=== PATIENT | male | born 1985 | race Caucasian/White ===

== ENCOUNTER 2019-02-03 22:02 | Observation (INO) | payer OTHER ==
[2019-02-03] MEDS ORDERED: Sodium Chloride 0.9% 1,000 ML IV STA (22:45)
[2019-02-03 23:14] LABS: BASO # 0.02 K/mm3 (0.0-2.0); BASO % 0.1 % (0.0-3.0); EOS # 0.1 (0.0-0.7); EOS % 0.8 % (1.5-5.0); HEMOGLOBIN 15.7 g/dL (14.0-18.0); LYMPH # 1.3 (1.2-3.4); LYMPH % 8.9 % (22.0-35.0); MEAN CELL VOLUME 83.5 fl (80.0-105.0); MEAN CORPUSCULAR HGB CONC 34.7 g/dl (31.0-37.0); MEAN PLATELET VOLUME 10.4 fl (7.0-11.0); MONO # 0.9 (0.1-0.6); MONO % 6.5 % (1.0-6.0); RBC 5.41 10^6/uL (3.5-6.1); RED CELL DISTRIBUTION WIDTH 12.6 % (11.5-14.5)
[2019-02-03 23:17] LABS: URINE BILIRUBIN NEGATIVE (NEGATIVE); URINE BLOOD NEGATIVE (NEGATIVE); URINE GLUCOSE (UA) NEGATIVE (NEGATIVE); URINE LEUKOCYTE ESTERASE NEGATIVE Leu/uL (NEGATIVE); URINE PROTEIN NEGATIVE mg/dL (<30 mg/dL); URINE UROBILINOGEN 0.2 E.U./dL (<1 E.U./dL)
[2019-02-03 23:19] LABS: URINE APPEARANCE CLEAR (CLEAR); URINE COLOR YELLOW (YELLOW)
[2019-02-03 23:21] LABS: ALB/GLOB RATIO 1.2 (1.1-1.8); ALBUMIN 4.4 g/dL (3.0-4.8); ALT/SGPT 28 U/L (7-56); AST/SGOT 19 U/L (17-59); BLOOD UREA NITROGEN 7 mg/dL (7-21); CALCIUM 9.3 mg/dL (8.4-10.5); GFR NON-AFRICAN AMERICAN > 60; LIPASE 45 U/L (23-300)
[2019-02-03] MEDS ORDERED: Iohexol 350 MG/100 ML VIAL ONE (23:51)
--- NOTE | 2019-02-04 00:40 | ED PDOC ---
Arrival/HPI - General Chief Complaint: Abdominal Pain Time Seen by Provider: 02/03/19 22:11 Historian: Patient - History of Present Illness Narrative History of Present Illness (Text): 02/04/19 00:25 33-year-old male presents today with left lower quadrant abdominal pain that started suddenly today. Patient describes the pain as a sharp achy pain that is nonradiating. Patient states she has had 2 episodes of vomiting today. He denies testicular pain. He denies back pain. Patient states last week he had diarrhea for about a week but that resolved. Patient states he has been around people who have been sick with similar symptoms. Patient denies fevers or chills. No chest pain or shortness of breath. No urinary symptoms. No other complaints Past Medical History - Provider Review Nursing Documentation Reviewed: Yes - Travel History Have you recently traveled outside [place] w/in the past 3 mons?: No - Infectious Disease Hx of Infectious Diseases: None - Cardiac Hx Cardiac Disorders: No - Psychiatric Hx Substance Use: No - Surgical History Other/Comment: L knee orthoscopic - Anesthesia Hx Anesthesia: No Family/Social History - Physician Review Nursing Documentation Reviewed: Yes Family/Social History: Unknown Family HX Smoking Status: Never Smoked Hx Alcohol Use: No Hx Substance Use: No Allergies/Home Meds Allergies/Adverse Reactions: Allergies No Known Allergies Allergy (Verified 02/03/19 22:16) Home Medications: Home Meds Medication Instructions Recorded Confirmed No Known Home Med 02/03/19 02/03/19 Review of Systems - Review of Systems Constitutional: absent: Fatigue, Fevers Respiratory: absent: SOB, Cough Cardiovascular: absent: Chest Pain, Palpitations Gastrointestinal: Abdominal Pain, Diarrhea, Vomiting. absent: Constipation, Nausea Genitourinary Male: Other (no testicular pain). absent: Dysuria, Frequency, Hematuria, Urinary Output Changes Musculoskeletal: absent: Arthralgias, Back Pain, Neck Pain Skin: absent: Rash, Pruritis Neurological: absent: Headache, Dizziness Psychiatric: absent: Anxiety Physical Exam Vital Signs Reviewed: Yes Vital Signs Temp Pulse Resp BP Pulse Ox 02/03/19 22:17 97.4 F L 73 18 138/84 100 Temperature: Afebrile Blood Pressure: Normal Pulse: Regular Respiratory Rate: Normal Appearance: Positive for: Well-Appearing, Non-Toxic, Comfortable Pain Distress: None Mental Status: Positive for: Alert and Oriented X 3 - Systems Exam Head: Present: Atraumatic Mouth: Present: Moist Mucous Membranes Neck: Present: Normal Range of Motion Respiratory/Chest: Present: Clear to Auscultation, Good Air Exchange. No: Respiratory Distress, Accessory Muscle Use Cardiovascular: Present: Regular Rate and Rhythm, Normal S1, S2. No: Murmurs Abdomen: Present: Tenderness (llq tenderness), Normal Bowel Sounds. No: Distention, Peritoneal Signs, Rebound, Guarding Back: Present: Normal Inspection. No: CVA Tenderness, Midline Tenderness, Paraspinal Tenderness Upper Extremity: Present: Normal ROM Lower Extremity: Present: Normal ROM Neurological: Present: GCS=15, Speech Normal Skin: Present: Warm, Dry, Normal Color. No: Rashes Psychiatric: Present: Alert, Oriented x 3 Medical Decision Making ED Course and Treatment: 02/04/19 00:41 Patient is nontoxic well appearing with stable vital signs presenting with llq abdominal pain CBC:wbc; 14 CMP: wnl Lipase: wnl Urinalysis: wnl CAT scan: FINDINGS: LUNG BASES: The lung bases appear clear. No pleural effusions are seen. LIVER: Unremarkable. GALLBLADDER AND BILE DUCTS: The gallbladder appears within normal limits. No radioopaque gallstones are seen. No biliary ductal dilatation is evident. PANCREAS: Unremarkable. SPLEEN: Unremarkable. ADRENAL GLANDS: Unremarkable. KIDNEYS, URETERS, AND BLADDER: The kidneys appear within normal limits. There is no hydronephrosis or hydro ureter. No urinary calculi are seen. STOMACH AND BOWEL: There is mild constipation in the proximal and mid colon. APPENDIX: There is an abnormal appendix in the right lower quadrant which measures 12 mm in diameter and demonstrate some rim enhancement and is fluid-filled and with some periappendiceal stranding. The finding is compatible with acute appendicitis. No evidence for perforation or abscess. PERITONEUM: No free fluid. No free air. LYMPH NODES: No lymphadenopathy is evident. REPRODUCTIVE: Unremarkable as visualized. VASCULATURE: No evidence of abdominal aortic aneurysm. BONES: Minimal degenerative spine changes. IMPRESSION: 1. There is mild constipation in the proximal and mid colon. 2. There is an abnormal appendix in the right lower quadrant which measures 12 mm in diameter and demonstrate some rim enhancement and is fluid-filled and with some periappendiceal stranding. The finding is compatible with acute appendicitis. No evidence for perforation or abscess. 3. Additional findings as described above. Electronically signed on Feb 04, 2019 12:47:30 AM EDT by: Jaiden Lopez M.D., Certified by ABR, MSK, Neuroradiology Patient reassessment: pt feeling better after toradol. states pain is now intermittent. Discussed all results with patient in depth case discussed with salesperson surgical appliances dr. Live; will admit to medical service. case discussed with dr. monge; blood cultures pending rocephin and flagyl given IV Impression: appendicitis admit med/surg 02/04/19 01:34 Reassessment Condition: Re-examined, Improving,but remains with symptoms - Lab Interpretations Lab Results: Total Bilirubin 0.5 mg/dL (0.2-1.3) 02/03/19 23:04 AST 19 U/L (17-59) 02/03/19 23:04 ALT 28 U/L (7-56) 02/03/19 23:04 Alkaline Phosphatase 66 U/L (38-126) 02/03/19 23:04 Total Protein 8.0 g/dL (5.8-8.3) 02/03/19 23:04 Albumin 4.4 g/dL (3.0-4.8) 02/03/19 23:04 Globulin 3.6 gm/dL 02/03/19 23:04 Albumin/Globulin Ratio 1.2 (1.1-1.8) 02/03/19 23:04 Lipase 45 U/L (23-300) 02/03/19 23:04 Urine Color Yellow (YELLOW) 02/03/19 23:11 Urine Appearance Clear (CLEAR) 02/03/19 23:11 Urine pH 8.0 (4.7-8.0) 02/03/19 23:11 Ur Specific [place] 1.015 (1.005-1.035) 02/03/19 23:11 Urine Protein Negative mg/dL (<30 mg/dL) 02/03/19 23:11 Urine Glucose (UA) Negative mg/dL (NEGATIVE) 02/03/19 23:11 Urine Ketones Negative mg/dL (NEGATIVE) 02/03/19 23:11 Urine Blood Negative (NEGATIVE) 02/03/19 23:11 Urine Nitrate Negative (NEGATIVE) 02/03/19 23:11 Urine Bilirubin Negative (NEGATIVE) 02/03/19 23:11 Urine Urobilinogen 0.2 E.U./dL (<1 E.U./dL) 02/03/19 23:11 Ur Leukocyte Esterase Negative [place]/uL (NEGATIVE) 02/03/19 23:11 - RAD Interpretation Radiology Orders: 02/03/19 22:49 ABD & PELVIS IV CONTRAST ONLY [CT] Stat - Medication Orders Current Medication Orders: Discontinued Medications Sodium Chloride (Sodium Chloride 0.9%) 1,000 mls @ 999 mls/hr IV .Q1H1M STA Stop: 02/03/19 23:45 Last Admin: 02/03/19 22:46 Dose: 999 mls/hr eMAR Start Stop Document 02/03/19 22:46 (Rec: 02/03/19 22:57 [id number] Intravenous Solution Start Date 02/03/19 Start Time 22:46 Ketorolac Tromethamine (Toradol) 30 mg IVP STAT STA Stop: 02/03/19 22:49 Last Admin: 02/03/19 22:57 Dose: 30 mg MAR Pain Assessment Document 02/03/19 22:57 (Rec: 02/03/19 22:58 [id number] Pain Reassessment Is this a pain reassessment? Yes Presence of Pain Presence of Pain Yes Pain Scale Used Protocol: PSCALES Pain Scale Used Numeric Location Left, Right or Bilateral Left Upper or Lower Lower Pain Location Body Site Abdomen Description Description Intermittent Intensity of Pain at present 6 Pain Behavior Rubbing Site Facial Grimacing IVP Administration Document 02/03/19 22:57 (Rec: 02/03/19 22:58 [id number] Charges for Administration # of IVP Administrations 1 Re-Assess: MARIE Pain Assessment Document 02/03/19 23:57 (Rec: 02/04/19 00:08 [id number] Pain Reassessment Is this a pain reassessment? Yes Sleep Is patient sleeping during reassessment? No Presence of Pain Presence of Pain No Disposition/Present on Arrival - Present on Arrival Any Indicators Present on Arrival: No History of DVT/PE: No History of Uncontrolled Diabetes: No Urinary Catheter: No History of Decub. Ulcer: No History Surgical Site Infection Following: None - Disposition Have Diagnosis and Disposition been Completed?: Yes Diagnosis: Appendicitis Disposition: HOSPITALIZED Disposition Time: 00:57 Patient Plan: Admission Patient Problems: Current Active Problems Problem Status Onset Appendicitis Acute Condition: FAIR Forms: [employer] (Uzbek)
[2019-02-04] MEDS ORDERED: metroNIDAZOLE IV 500 mg/100 ml 500 MG/100 ML BAG IVPB STA (00:54)
[2019-02-04] MEDS ORDERED: cefTRIAXone 1 gm 1 GM/100 ML BAG IVPB STA (00:54)
--- NOTE | 2019-02-04 01:15 | CP.PCM.CON ---
History of Present Illness - History of Present Illness History of Present Illness: Surgery Consult Note. Dr. Vela 33yo M with no significant PMHx here for evaluation of abdominal pain. Patient reports that the pain started yesterday morning at 11 AM and has been located in the LLQ, left periumbilical. States that the pain feels sharp. Does report associated nausea and vomiting x2 episodes, non-bilious, non-bloody. Reports regular bowel movements and last episode this morning, no blood. Does report subjective fever. Denies any sick contacts at home. Denies ever having similar symptoms in the past. Reports having diarrhea last week which has since resolved. Denies any chest pain, no shortness of breath. No urinary complaints. PMHx: Denies PSHx: Left Knee surgery 20 years ago Family Hx: denies Social Hx: Denies tobacco use, Denies etoh use, denies illicit drugs Allergy: Shellfish. Review of Systems - Review of Systems All systems: reviewed and no additional remarkable complaints except - Constitutional Constitutional: Chills, Fever - EENT Eyes: absent: Blurred Vision Ears: absent: Decreased Hearing Nose/Mouth/Throat: absent: Nasal Congestion - Cardiovascular Cardiovascular: absent: Chest Pain, Dyspnea - Respiratory Respiratory: absent: Dyspnea - Gastrointestinal Gastrointestinal: Abdominal Pain, Nausea, Vomiting. absent: Hematemesis, Hematochezia - Genitourinary Genitourinary: absent: Change in Urinary Stream, Difficulty Urinating, Dysuria - Musculoskeletal Musculoskeletal: absent: Back Pain - Integumentary Integumentary: absent: Jaundice Past Patient History - Infectious Disease Hx of Infectious Diseases: None - Past Medical History & Family History Past Medical History?: No Past Family History: Reviewed and not pertinent - Past Social History Smoking Status: Never Smoked Alcohol: None Drugs: Denies - CARDIAC Hx Cardiac Disorders: No - PSYCHIATRIC Hx Substance Use: No - SURGICAL HISTORY Other/Comment: L knee orthoscopic - ANESTHESIA Hx Anesthesia: No Meds Allergies/Adverse Reactions: Allergies Allergy/AdvReac Type Severity Reaction Status Date / Time No Known Allergies Allergy Verified 02/03/19 22:16 - Medications Medications: Current Medications Metronidazole (Flagyl) 500 mg in 100 mls @ 100 mls/hr IVPB STAT STA; Protocol Stop: 02/04/19 01:53 Ceftriaxone Sodium (Rocephin 1 Gram Ivpb) 1 gm in 100 mls @ 200 mls/hr IVPB STAT STA; Protocol Stop: 02/04/19 01:23 Last Admin: 02/04/19 01:10 Dose: 200 mls/hr Physical Exam - Constitutional Appears: Well, Non-toxic, No Acute Distress - Head Exam Head Exam: ATRAUMATIC, NORMAL INSPECTION, NORMOCEPHALIC - Eye Exam Eye Exam: EOMI, Normal appearance. absent: Scleral icterus - ENT Exam ENT Exam: Mucous Membranes Moist - Respiratory Exam Respiratory Exam: NORMAL BREATHING PATTERN. absent: Accessory Muscle Use, Respiratory Distress - Cardiovascular Exam Cardiovascular Exam: RRR. absent: JVD - GI/Abdominal Exam GI & Abdominal Exam: Soft. absent: Distended, Firm, Guarding, Rebound, Rigid Additional comments: Mild tenderness to deep palpation in right lower quadrant. No rebound No guarding No peritoneal signs No Psoas sign. No obturator sign - Extremities Exam Extremities exam: Positive for: normal inspection. Negative for: calf tenderness - Back Exam Back exam: NORMAL INSPECTION. absent: CVA tenderness (L), CVA tenderness (R) - Neurological Exam Neurological exam: Alert, Oriented x3 - Psychiatric Exam Psychiatric exam: Normal Affect, Normal Mood - Skin Skin Exam: Dry, Intact, Normal Color, Warm Results - Vital Signs Recent Vital Signs: Last Vital Signs Temp 97.4 F L 02/03/19 22:17 Pulse 70 02/04/19 00:59 Resp 18 02/04/19 00:59 BP 113/66 02/04/19 00:59 Pulse Ox 98 02/04/19 00:59 - Labs Result Diagrams: 02/03/19 23:04 02/03/19 23:04 Labs: Laboratory Results - last 24 hr 02/03/19 02/03/19 02/03/19 23:04 23:04 23:11 WBC 14.0 H RBC 5.41 Hgb 15.7 Hct 45.2 MCV 83.5 MCH 29.0 MCHC 34.7 RDW 12.6 Plt Count 250 MPV 10.4 Neut % (Auto) 83.7 H Lymph % (Auto) 8.9 L [place] % (Auto) 6.5 H Eos % (Auto) 0.8 L Baso % (Auto) 0.1 Lymph # (Auto) 1.3 [place] # (Auto) 0.9 H Eos # (Auto) 0.1 Baso # (Auto) 0.02 Absolute Neuts (auto) 11.75 H Sodium 141 Potassium 3.5 L Chloride 104 Carbon Dioxide 27 Anion Gap 13 BUN 7 Creatinine 0.7 L Est GFR ( Amer) > 60 Est GFR (Non-Af Amer) > 60 Random Glucose 140 H Calcium 9.3 Total Bilirubin 0.5 AST 19 ALT 28 Alkaline Phosphatase 66 Total Protein 8.0 Albumin 4.4 Globulin 3.6 Albumin/Globulin Ratio 1.2 Lipase 45 Urine Color Yellow Urine Appearance Clear Urine pH 8.0 Ur Specific [place] 1.015 Urine Protein Negative Urine Glucose (UA) Negative Urine Ketones Negative Urine Blood Negative Urine Nitrate Negative Urine Bilirubin Negative Urine Urobilinogen 0.2 Ur Leukocyte Esterase Negative Assessment & Plan - Assessment and Plan (Free Text) Assessment: 33yo M with atypical presentation of acute appendicitis - CT Abd/Pelvis noted: Periapendiceal fat stranding, 12mm dilated, fluid filled appendix with thickened wall - Leukocytosis Plan: - NPO except meds - f/u Coags - Will plan for OR - IV Abx - Pain control - Antiemetics as needed - IV Fluids Further recs as per Dr. Dane Live PGY2 surgery
[2019-02-04] MEDS ORDERED: Potassium Chloride 20 mEq ER Tab PO STA (01:31)
[2019-02-04] MEDS ORDERED: Sodium Chloride 0.9% 1,000 ML IV SCH (01:45)
[2019-02-04] MEDS: Morphine 2 mg/ml ISec IVP PRN ×2 (02:03→06:12)
--- NOTE | 2019-02-04 02:03 | CP.PCM.HP ---
<Armaan Whitney - Last Filed: 02/04/19 02:16> History of Present Illness - History of Present Illness History of Present Illness: Armaan Whitney DO, PGY-1 Hospitalist Admission History and Physical for Dr. Fleming CC: LLQ abdominal pain HPI: Patient is a 33 year old male with no significant PMH who presented to ED earlier this afternoon with a complaint of worsening LLQ abdominal pain. He described the pain as a burning type sensation that radiates to his mid- abdominal region. He also admits to two episodes of vomiting earlier in the day. He admits to subjective fever earlier in the day. He states he decided to come in because the pain was worsening. He otherwise denies chills, CP, SOB, bloody/black stools, diarrhea, ALLISON, changes in vision, or urinary complaints. 12 point ROS was otherwise negative except as specified above. PMD: none Past Medical History: denies Past Surgical History: denies Allergies: NKA Home medications: no home medications Family History: reviewed, non-contributory Social History: denies current or prior tobacco, EtOH, illicit drug use Present on Admission - Present on Admission Any Indicators Present on Admission: No History of DVT/PE: No History of Uncontrolled Diabetes: No Urinary Catheter: No Decubitus Ulcer Present: No Past Patient History - Infectious Disease Hx of Infectious Diseases: None - Past Medical History & Family History Past Medical History?: No Past Family History: Reviewed and not pertinent - Past Social History Smoking Status: Never Smoked Alcohol: None Drugs: Denies - CARDIAC Hx Cardiac Disorders: No - PSYCHIATRIC Hx Substance Use: No - SURGICAL HISTORY Other/Comment: L knee orthoscopic - ANESTHESIA Hx Anesthesia: No Meds Allergies/Adverse Reactions: Allergies Allergy/AdvReac Type Severity Reaction Status Date / Time shellfish derived Allergy RASH Verified 02/04/19 02:10 Physical Exam - Constitutional Appears: Non-toxic, No Acute Distress - Head Exam Head Exam: ATRAUMATIC, NORMOCEPHALIC - Eye Exam Eye Exam: EOMI, PERRL - ENT Exam ENT Exam: Mucous Membranes Moist - Neck Exam Neck exam: Positive for: Full Rom, Normal Inspection - Respiratory Exam Respiratory Exam: Clear to Auscultation Bilateral, NORMAL BREATHING PATTERN. absent: Accessory Muscle Use, Rales, Rhonchi, Wheezes, Respiratory Distress - Cardiovascular Exam Cardiovascular Exam: REGULAR RHYTHM, RRR, +S1, +S2. absent: Diastolic murmur, Gallop, Rubs, Systolic Murmur - GI/Abdominal Exam GI & Abdominal Exam: Normal Bowel Sounds, Tenderness (mild tenderness to deep palpation RLQ). absent: Guarding, Rebound Additional comments: No peritoneal signs, no rebound, no guarding - Extremities Exam Extremities exam: Positive for: full ROM, normal inspection. Negative for: pedal edema - Back Exam Back exam: NORMAL INSPECTION - Neurological Exam Neurological exam: Alert, Oriented x3 - Psychiatric Exam Psychiatric exam: Normal Affect, Normal Mood - Skin Skin Exam: Dry, Intact, Warm Results - Vital Signs Recent Vital Signs: Last Vital Signs Temp 97.4 F L 02/03/19 22:17 Pulse 70 02/04/19 00:59 Resp 18 02/04/19 00:59 BP 113/66 02/04/19 00:59 Pulse Ox 98 02/04/19 00:59 - Labs Result Diagrams: 02/03/19 23:04 02/03/19 23:04 Labs: Laboratory Results - last 24 hr 02/03/19 02/03/19 02/03/19 23:04 23:04 23:11 WBC 14.0 H RBC 5.41 Hgb 15.7 Hct 45.2 MCV 83.5 MCH 29.0 MCHC 34.7 RDW 12.6 Plt Count 250 MPV 10.4 Neut % (Auto) 83.7 H Lymph % (Auto) 8.9 L [place] % (Auto) 6.5 H Eos % (Auto) 0.8 L Baso % (Auto) 0.1 Lymph # (Auto) 1.3 [place] # (Auto) 0.9 H Eos # (Auto) 0.1 Baso # (Auto) 0.02 Absolute Neuts (auto) 11.75 H Sodium 141 Potassium 3.5 L Chloride 104 Carbon Dioxide 27 Anion Gap 13 BUN 7 Creatinine 0.7 L Est GFR ( Amer) > 60 Est GFR (Non-Af Amer) > 60 Random Glucose 140 H Calcium 9.3 Total Bilirubin 0.5 AST 19 ALT 28 Alkaline Phosphatase 66 Total Protein 8.0 Albumin 4.4 Globulin 3.6 Albumin/Globulin Ratio 1.2 Lipase 45 Urine Color Yellow Urine Appearance Clear Urine pH 8.[address] [place] 1.015 Urine Protein Negative Urine Glucose (UA) Negative Urine Ketones Negative Urine Blood Negative Urine Nitrate Negative Urine Bilirubin Negative Urine Urobilinogen 0.2 Ur Leukocyte Esterase Negative Assessment & Plan - Assessment and Plan (Free Text) Assessment: 33 yo M with no significant PMH admitted for acute appendicitis. Plan: Acute appendicitis Atypical presentation but identified on CTAP Subjective fever, leukocytosis noted Patient started on rocephin/flagyl, will continue Zofran PRN Per surgery, patient likely to go to OR in AM Surgery consulted, all recs appreciated DVT/GI PPX: SCD/GI ppx not indicated Full Code NPO pending surgery Monitor on med/surg Patient seen, examined with, and plan discussed with my attending Dr. Lonnie Whitney, ArnulfoO. IM Resident PGY-1 <Rochelle Fleming - Last Filed: 02/04/19 03:00> Results - Vital Signs Recent Vital Signs: Last Vital Signs Temp 97.4 F L 02/03/19 22:17 Pulse 60 02/04/19 02:08 Resp 18 02/04/19 02:08 BP 120/62 02/04/19 02:08 Pulse Ox 97 02/04/19 02:08 - Labs Result Diagrams: 02/03/19 23:04 02/03/19 23:04 Labs: Laboratory Results - last 24 hr 02/03/19 02/03/19 02/03/19 23:04 23:04 23:11 WBC 14.0 H RBC 5.41 Hgb 15.7 Hct 45.2 MCV 83.5 MCH 29.0 MCHC 34.7 RDW 12.6 Plt Count 250 MPV 10.4 Neut % (Auto) 83.7 H Lymph % (Auto) 8.9 L [place] % (Auto) 6.5 H Eos % (Auto) 0.8 L Baso % (Auto) 0.1 Lymph # (Auto) 1.3 [place] # (Auto) 0.9 H Eos # (Auto) 0.1 Baso # (Auto) 0.02 Absolute Neuts (auto) 11.75 H PT INR APTT Sodium 141 Potassium 3.5 L Chloride 104 Carbon Dioxide 27 Anion Gap 13 BUN 7 Creatinine 0.7 L Est GFR ( Amer) > 60 Est GFR (Non-Af Amer) > 60 Random Glucose 140 H Calcium 9.3 Total Bilirubin 0.5 AST 19 ALT 28 Alkaline Phosphatase 66 Total Protein 8.0 Albumin 4.4 Globulin 3.6 Albumin/Globulin Ratio 1.2 Lipase 45 Urine Color Yellow Urine Appearance Clear Urine pH 8.[address] [place] 1.015 Urine Protein Negative Urine Glucose (UA) Negative Urine Ketones Negative Urine Blood Negative Urine Nitrate Negative Urine Bilirubin Negative Urine Urobilinogen 0.2 Ur Leukocyte Esterase Negative 02/04/19 01:05 WBC RBC Hgb Hct MCV MCH MCHC RDW Plt Count MPV Neut % (Auto) Lymph % (Auto) [place] % (Auto) Eos % (Auto) Baso % (Auto) Lymph # (Auto) [place] # (Auto) Eos # (Auto) Baso # (Auto) Absolute Neuts (auto) PT 13.1 H INR 1.18 APTT 37.9 Sodium Potassium Chloride Carbon Dioxide Anion Gap BUN Creatinine Est GFR ( Amer) Est GFR (Non-Af Amer) Random Glucose Calcium Total Bilirubin AST ALT Alkaline Phosphatase Total Protein Albumin Globulin Albumin/Globulin Ratio Lipase Urine Color Urine Appearance Urine pH Ur Specific [place] Urine Protein Urine Glucose (UA) Urine Ketones Urine Blood Urine Nitrate Urine Bilirubin Urine Urobilinogen Ur Leukocyte Esterase Attending/Attestation - Attestation I have personally seen and examined this patient.: Yes I have fully participated in the care of the patient.: Yes I have reviewed all pertinent clinical information: Yes Notes (Text): 02/04/19 02:44 Note: examination of the abd reveals tenderness on palpation of the LLQ.There is no guarding or rebound Pt seen with the resident by the bedside. Case discussed in detail. Agree with rest of documentation,assessment and plan of treatment.
[2019-02-04 02:12] LABS: INR 1.18; PARTIAL THROMBOPLASTIN TIME 37.9 Seconds (26.9-38.3); PROTHROMBIN TIME 13.1 SECONDS (9.4-12.5)
[2019-02-04 03:12] VITALS: BMI 29.1
[2019-02-04] MEDS: metroNIDAZOLE IV 500 mg/100 ml 500 MG/100 ML BAG IVPB SCH ×3 (06:08→21:42)
[2019-02-04 07:38] LABS: BASO # 0.02 K/mm3 (0.0-2.0); BASO % 0.2 % (0.0-3.0); EOS # 0.1 (0.0-0.7); EOS % 0.8 % (1.5-5.0); HEMOGLOBIN 14.5 g/dL (14.0-18.0); LYMPH % 7.8 % (22.0-35.0); MEAN CELL VOLUME 84.2 fl (80.0-105.0); MEAN CORPUSCULAR HEMOGLOBIN 28.3 pg (25.0-35.0); MEAN CORPUSCULAR HGB CONC 33.6 g/dl (31.0-37.0); MEAN PLATELET VOLUME 9.9 fl (7.0-11.0); MONO % 8.3 % (1.0-6.0); RBC 5.12 10^6/uL (3.5-6.1); RED CELL DISTRIBUTION WIDTH 12.7 % (11.5-14.5); WHITE BLOOD COUNT 12.5 10^3/uL (4.5-11.0)
[2019-02-04 08:17] LABS: ALB/GLOB RATIO 1.2 (1.1-1.8); ALBUMIN 3.9 g/dL (3.0-4.8); ALT/SGPT 23 U/L (7-56); AST/SGOT 25 U/L (17-59); BLOOD UREA NITROGEN 7 mg/dL (7-21); CALCIUM 8.6 mg/dL (8.4-10.5); GFR NON-AFRICAN AMERICAN > 60
[2019-02-04] MEDS: cefTRIAXone 1 gm 1 GM/100 ML BAG IVPB SCH (10:04)
--- NOTE | 2019-02-04 10:25 | CT ---
Date of service: 02/03/2019 PROCEDURE: CT scan of the abdomen and pelvis HISTORY: Left lower quadrant abdominal pain. COMPARISON: None. TECHNIQUE: Contiguous axial images of the abdomen and pelvis performed in standard fashion following intravenous injection of approximately 100 cc Omnipaque 350 contrast material. Additional 2D sagittal and coronal reformats generated. Radiation dose: Total exam DLP = 562.25 mGy-cm. This CT exam was performed using one or more of the following dose reduction techniques: Automated exposure control, adjustment of the mA and/or kV according to patient size, and/or use of iterative reconstruction technique. FINDINGS: LOWER THORAX: Heart size within range of normal. No significant pericardial effusion. Small hiatal hernia. Minor passive/dependent type atelectasis both posterior sulci. Lung bases otherwise clear. No effusion or basilar pneumothorax. LIVER: Liver is mildly enlarged measuring nearly 22 cm in CC dimension. Minor diffuse fatty hepatic infiltration. Portal and splenic veins are opacified GALLBLADDER AND BILE DUCTS: Gallbladder physiologically distended with no evidence of intraluminal calculi. PANCREAS: Unremarkable. No mass. No ductal dilatation. SPLEEN: Spleen is mildly enlarged measuring nearly 14 cm in CC dimension. No obvious splenic mass collection or calcification ADRENALS: The slightly nodular appearing left adrenal gland KIDNEYS AND URETERS: Kidneys demonstrate relatively symmetric nephrograms. No evidence of nephrolithiasis or hydronephrosis. No obvious renal masses or collections. BLADDER: Urinary bladder incompletely distended which in part accounts for thick-walled appearance however muscular hypertrophy presumably contributes. Correlation with urinalysis recommended to exclude cystitis. REPRODUCTIVE: Prostate gland measures approximately 4.0 cm in transverse dimension. APPENDIX: The appendix is dilated measuring up to approximately 14 mm in greatest diameter mild enhancing thickened wall. There is also mild infiltration and questionable small amount of fluid within the adjacent mesentery. Findings are consistent with acute appendicitis. BOWEL: Evaluation of bowel is somewhat lately limited due to the lack of oral contrast material. Stomach is incompletely distended with thick-walled appearance. Visualized loops of small bowel exhibit contour and caliber. No evidence of mechanical small bowel obstruction. Moderate amount of stool seen throughout the large bowel consistent retention/constipation. PERITONEUM: Unremarkable. No fluid collection. No free air. LYMPH NODES: There are a few small to medium-sized nonspecific retroperitoneal lymph nodes. VASCULATURE: Unremarkable. No aortic aneurysm. No aortic atherosclerotic calcification or mural plaque present. BONES: No acute compression fractures no retropulsed fragments. Minor chronic anterior stature loss of the T11, T12 and L1 segments likely degenerative in origin. [id number] mild multilevel degenerative spondylosis of the lower thoracic and lumbar spine OTHER FINDINGS: None. IMPRESSION: Findings consistent with acute appendicitis. Mild constipation. Hepatomegaly. Mild splenomegaly. Preliminary report provided by overnight radiology service.
[2019-02-04] MEDS ORDERED: Bupivacaine 0.5% 50 ML IJ ONE (11:41)
--- NOTE | 2019-02-04 11:42 | RAD ---
Date of service: 02/04/2019 HISTORY: pre-op COMPARISON: No prior. FINDINGS: LUNGS: No active pulmonary disease. PLEURA: No significant pleural effusion identified, no pneumothorax apparent. CARDIOVASCULAR: No atherosclerotic calcification present Normal. OSSEOUS STRUCTURES: No significant abnormalities. VISUALIZED UPPER ABDOMEN: Normal. OTHER FINDINGS: None. IMPRESSION: No active disease.
[2019-02-04] MEDS ORDERED: Midazolam 2 MG/2 ML VIAL ONE (12:31)
[2019-02-04] MEDS ORDERED: Propofol 10 mg/ml Inj (20 ML) ONE (12:31)
[2019-02-04] MEDS ORDERED: Succinylcholine 200 mg/10 ml Inj IV ONE (12:31)
[2019-02-04] MEDS ORDERED: Lactated Ringer's 1,000 ML IV SCH ×2 (13:00→15:30)
[2019-02-04] MEDS ORDERED: Rocuronium 10 mg/ml (5 ml) ONE (13:32)
[2019-02-04] MEDS ORDERED: MetroNIDAZOLE 500 mg/100 ml IVPB ONE (13:55)
[2019-02-04] MEDS ORDERED: metroNIDAZOLE IV 500 mg/100 ml 500 MG/100 ML BAG ONE (13:57)
[2019-02-04] MEDS ORDERED: Bupivacaine 0.5% Inj(30mL) IJ ONE ×2 (14:00→15:10)
[2019-02-04] MEDS ORDERED: Desflurane Inhalation Anesthetic Liq (240 ml) ONE (14:21)
[2019-02-04] MEDS ORDERED: Neostigmine Methylsulfate 3mg/3ml Syringe IV ONE (14:25)
[2019-02-04] MEDS ORDERED: Morphine 4 mg/ml ISec IVP PRN (15:23)
[2019-02-04] MEDS ORDERED: Oxycodone/Acetaminophen 5/325 mg Tab PO PRN (15:23)
--- NOTE | 2019-02-04 15:26 | PCM.SURG1 ---
Surgeon's Initial Post Op Note - Surgeon's Notes Surgeon: Dr. Vela Retort Or Condenser Press Operator: Dr. Tuttle PGY3, Dr. Green PGY1 Type of Anesthesia: General Endo Pre-Operative Diagnosis: acute appendicitis Operative Findings: acute appendicitis Post-Operative Diagnosis: acute appendicitis Operation Performed: laparoscopic appendectomy Specimen/Specimens Removed: appendix Estimated Blood Loss: EBL {In ML}: 30 Blood Products Given: N/A Drains Used: No Drains Post-Op Condition: Good Date of Surgery/Procedure: 02/04/19 Time of Surgery/Procedure: 15:26
[2019-02-04] MEDS ORDERED: HYDROmorphone 1 mg/ml ISec IVP PRN (15:28)
--- NOTE | 2019-02-04 16:46 | CARD ---
APPROVED REPORT Date of service: 02/04/2019 EKG Measurement Heart [id number] <Conclusion> Normal sinus rhythm Normal ECG
[2019-02-05] MEDS: metroNIDAZOLE IV 500 mg/100 ml 500 MG/100 ML BAG IVPB SCH (06:10)
[2019-02-05 07:37] LABS: BASO # 0.01 K/mm3 (0.0-2.0); BASO % 0.1 % (0.0-3.0); EOS % 0.1 % (1.5-5.0); HEMOGLOBIN 13.9 g/dL (14.0-18.0); LYMPH # 1.3 (1.2-3.4); LYMPH % 10.5 % (22.0-35.0); MEAN CELL VOLUME 83.8 fl (80.0-105.0); MEAN CORPUSCULAR HEMOGLOBIN 28.5 pg (25.0-35.0); MEAN PLATELET VOLUME 10.1 fl (7.0-11.0); MONO # 0.9 (0.1-0.6); MONO % 7.2 % (1.0-6.0); RBC 4.88 10^6/uL (3.5-6.1); RED CELL DISTRIBUTION WIDTH 12.7 % (11.5-14.5); WHITE BLOOD COUNT 12.6 10^3/uL (4.5-11.0)
[2019-02-05 07:50] VITALS: BP 102/61; PULSE 61; RESP 20; TEMP 98.3; O2SAT 98
[2019-02-05 07:52] LABS: ALB/GLOB RATIO 1.1 (1.1-1.8); ALBUMIN 3.6 g/dL (3.0-4.8); ALT/SGPT 22 U/L (7-56); AST/SGOT 38 U/L (17-59); BLOOD UREA NITROGEN 10 mg/dL (7-21); CALCIUM 8.7 mg/dL (8.4-10.5); GFR NON-AFRICAN AMERICAN > 60
[2019-02-05] MEDS: cefTRIAXone 1 gm 1 GM/100 ML BAG IVPB SCH (09:49)
--- NOTE | 2019-02-05 11:48 | CP.PCM.PN ---
Subjective - Date & Time of Evaluation Date of Evaluation: 02/05/19 Time of Evaluation: 11:45 - Subjective Subjective: Jorje Gupta PGY1 Progress Note for Dr. Vela Pt was examined at bedside this morning. He reports feeling well, with mild abdo jolie pain and dysuria. He reports tolerating diet. He denies any nausea, vomiting, fever or chills. He passed gas but denies any bowel movements as of yet. Objective - Vital Signs/Intake and Output Vital Signs (last 24 hours): Temp Pulse Resp BP Pulse Ox 98.3 F 61 20 102/61 98 02/05/19 06:00 02/05/19 06:00 02/05/19 06:00 02/05/19 06:00 02/05/19 06:00 - Medications Medications: Current Medications Metronidazole (Flagyl) 500 mg in 100 mls @ 100 mls/hr IVPB Q8 ALISON; Protocol Last Admin: 02/05/19 06:10 Dose: 100 mls/hr Ceftriaxone Sodium (Rocephin 1 Gram Ivpb) 1 gm in 100 mls @ 100 mls/hr IVPB DAILY ALISON; Protocol Last Admin: 02/05/19 09:49 Dose: 100 mls/hr Sodium Chloride (Sodium Chloride 0.9%) 1,000 mls @ 100 mls/hr IV .Q10H ALISON Last Admin: 02/04/19 02:04 Dose: 100 mls/hr Morphine Sulfate (Morphine) 4 mg IVP Q4H PRN PRN Reason: Pain, severe (8-10) Ondansetron HCl (Zofran Inj) 4 mg IVP Q6H PRN PRN Reason: Nausea/Vomiting Last Admin: 02/04/19 02:04 Dose: 4 mg Oxycodone/Acetaminophen (Percocet 5/325 Mg Tab) 2 tab PO Q4H PRN PRN Reason: Pain, moderate (4-7) Stop: 02/07/19 15:24 - Labs Labs: 02/05/19 07:15 02/05/19 07:15 PT 13.1 SECONDS (9.4-12.5) H 02/04/19 01:05 INR 1.18 02/04/19 01:05 APTT 37.9 Seconds (26.9-38.3) 02/04/19 01:05 - Constitutional Appears: Well, No Acute Distress - Head Exam Head Exam: ATRAUMATIC, NORMOCEPHALIC - Eye Exam Eye Exam: EOMI, PERRL - ENT Exam ENT Exam: Normal Exam - Neck Exam Neck Exam: Normal Inspection - Respiratory Exam Respiratory Exam: Clear to Ausculation Bilateral, NORMAL BREATHING PATTERN. absent: Rales, Rhonchi, Wheezes - Cardiovascular Exam Cardiovascular Exam: REGULAR RHYTHM, +S1, +S2. absent: Gallop, Rubs, Murmur - GI/Abdominal Exam GI & Abdominal Exam: Soft, Normal Bowel Sounds. absent: Distended, Tenderness Additional comments: surgical sites clean/dry/intact - Extremities Exam Extremities Exam: Normal Inspection. absent: Pedal Edema Assessment and Plan - Assessment and Plan (Free Text) Assessment: 33 yo M with no significant PMH admitted for acute appendicitis. S/p lap appy POD 1 Plan: - Regular Diet - afebrile, no leukocytosis - asymptomatic - follow up in office next week - avoid heavy lifting for 4-6 weeks - no antibiotics necessary - stable for d/c Case reviewed with Dr. Vela
--- NOTE | 2019-02-05 12:43 | CP.PCM.DIS ---
<Bro Suarez - Last Filed: 02/05/19 13:13> Provider - Provider Date of Admission: 02/04/19 00:56 Attending physician: Daya Sequeira MD Primary care physician: None Consults: 02/04/19 01:20 General Surgery Consult Stat Comment: Consulting Provider: Kunal Vela Consulting Physician: Kunal Vela Reason for Consult: appendicitis Time Spent in preparation of Discharge (in minutes): 35 Hospital Course - Lab Results Lab Results: Micro Results 02/04/19 01:05 Blood Blood Culture - Preliminary NO GROWTH AFTER 24 HOURS 02/04/19 00:58 Blood Blood Culture - Preliminary NO GROWTH AFTER 24 HOURS Most Recent Lab Values WBC 12.6 10^3/uL (4.5-11.0) H 02/05/19 07:15 RBC 4.88 10^6/uL (3.5-6.1) 02/05/19 07:15 Hgb 13.9 g/dL (14.0-18.0) L 02/05/19 07:15 Hct 40.9 % (42.0-52.0) L 02/05/19 07:15 MCV 83.8 fl (80.0-105.0) 02/05/19 07:15 MCH 28.5 pg (25.0-35.0) 02/05/19 07:15 MCHC 34.0 g/dl (31.0-37.0) 02/05/19 07:15 RDW 12.7 % (11.5-14.5) 02/05/19 07:15 Plt Count 227 10^3/uL (120.0-450.0) 02/05/19 07:15 MPV 10.1 fl (7.0-11.0) 02/05/19 07:15 Neut % (Auto) 82.1 % (50.0-68.0) H 02/05/19 07:15 Lymph % (Auto) 10.5 % (22.0-35.0) L 02/05/19 07:15 [place] % (Auto) 7.2 % (1.0-6.0) H 02/05/19 07:15 Eos % (Auto) 0.1 % (1.5-5.0) L 02/05/19 07:15 Baso % (Auto) 0.1 % (0.0-3.0) 02/05/19 07:15 Lymph # (Auto) 1.3 (1.2-3.4) 02/05/19 07:15 [place] # (Auto) 0.9 (0.1-0.6) H 02/05/19 07:15 Eos # (Auto) 0.0 (0.0-0.7) 02/05/19 07:15 Baso # (Auto) 0.01 K/mm3 (0.0-2.0) 02/05/19 07:15 Absolute Neuts (auto) 10.36 (1.4-6.5) H 02/05/19 07:15 PT 13.1 SECONDS (9.4-12.5) H 02/04/19 01:05 INR 1.18 02/04/19 01:05 APTT 37.9 Seconds (26.9-38.3) 02/04/19 01:05 Sodium 141 mmol/L (132-148) 02/05/19 07:15 Potassium 4.0 mmol/L (3.6-5.0) 02/05/19 07:15 Chloride 105 mmol/L (98-107) 02/05/19 07:15 Carbon Dioxide 28 mmol/L (21-33) 02/05/19 07:15 Anion Gap 12 (10-20) 02/05/19 07:15 BUN 10 mg/dL (7-21) 02/05/19 07:15 Creatinine 0.7 mg/dl (0.8-1.5) L 02/05/19 07:15 Est GFR ( Amer) > 60 02/05/19 07:15 Est GFR (Non-Af Amer) > 60 02/05/19 07:15 Random Glucose 100 mg/dL (70-110) 02/05/19 07:15 Calcium 8.7 mg/dL (8.4-10.5) 02/05/19 07:15 Phosphorus 3.7 mg/dL (2.5-4.5) 02/04/19 07:10 Magnesium 2.1 mg/dL (1.7-2.2) 02/04/19 07:10 Total Bilirubin 0.7 mg/dL (0.2-1.3) 02/05/19 07:15 AST 38 U/L (17-59) 02/05/19 07:15 ALT 22 U/L (7-56) 02/05/19 07:15 Alkaline Phosphatase 50 U/L (38-126) 02/05/19 07:15 Total Protein 6.9 g/dL (5.8-8.3) 02/05/19 07:15 Albumin 3.6 g/dL (3.0-4.8) 02/05/19 07:15 Globulin 3.3 gm/dL 02/05/19 07:15 Albumin/Globulin Ratio 1.1 (1.1-1.8) 02/05/19 07:15 Lipase 45 U/L (23-300) 02/03/19 23:04 Urine Color Yellow (YELLOW) 02/03/19 23:11 Urine Appearance Clear (CLEAR) 02/03/19 23:11 Urine pH 8.0 (4.7-8.0) 02/03/19 23:11 Ur Specific [place] 1.015 (1.005-1.035) 02/03/19 23:11 Urine Protein Negative mg/dL (<30 mg/dL) 02/03/19 23:11 Urine Glucose (UA) Negative mg/dL (NEGATIVE) 02/03/19 23:11 Urine Ketones Negative mg/dL (NEGATIVE) 02/03/19 23:11 Urine Blood Negative (NEGATIVE) 02/03/19 23:11 Urine Nitrate Negative (NEGATIVE) 02/03/19 23:11 Urine Bilirubin Negative (NEGATIVE) 02/03/19 23:11 Urine Urobilinogen 0.2 E.U./dL (<1 E.U./dL) 02/03/19 23:11 Ur Leukocyte Esterase Negative Domenico/uL (NEGATIVE) 02/03/19 23:11 Blood Type B POSITIVE 02/04/19 07:10 Blood Type Confirm B POSITIVE 02/04/19 07:40 Antibody Screen Negative 02/04/19 07:10 BBK History Checked No verified bt 02/04/19 07:10 - Hospital Course Hospital Course: Bro Suarez, PGY-1 Discharge Summary for Hospitalist Service CC: Abdominal Pain Hospital Course: 33 year old male with no significant PMHx who presented to ED with a complaint of worsening LLQ abdominal pain along with two episodes of vomiting and subjective fever. Patient informed us that he is allergic to shellfish. Surgery was consulted - Dr. Vela. A CT Abd/Pelvis was performed and noted periapendiceal fat stranding, 12mm dilated, fluid filled appendix with thickened wall along with leukocytosis of 14.0. Patient was kept NPO except meds in advance of plan for laporoscopic appendectomy. Coags were done and were acceptable along with CXR which showed no active disease and EKG which showed NSR @ 60 bpm with no QT prolongation. Patient was started on Rocephin and Flagyl. Pain was controlled with Percocet and Morphine and nausea with Zofran. Patient was started on IVF NS @ 100 cc/hr. Patient underwent lap nadya without complication. Catheter was only utilized intraoperatively. The next day, patient urinated and passed stool spontaneously without complication. Patient thereafter tolerated diet and was without nausea and vomiting. Patient expressed mild tenderness at port sites. Patient currently denies chest pain, shortness of breath, palpitations, leg swelling, abdominal distension, nausea, vomiting, fevers and chills. Per surgery, patient did not require further antibiotics on discharge. Patient was told to avoid heavy lifting but can shower and dab dry dermabond sites. Patient was told to follow up with PMD and Dr. Vela in his clinic within 3-5 days. All questions were answered in detail with patient family at bedside to their satisfaction. For further details of hospital stay, please refer to EMR. Patient seen, case reviewed and plan approved by Dr. Marilu Bailey. Bro Suarez, PGY-1 Discharge Exam - Additional Findings Additional findings: - Constitutional Appears: Non-toxic, No Acute Distress - Head Exam Head Exam: ATRAUMATIC, NORMOCEPHALIC - Eye Exam Eye Exam: EOMI, PERRL - ENT Exam ENT Exam: Mucous Membranes Moist - Neck Exam Neck exam: Positive for: Full Rom, Normal Inspection - Respiratory Exam Respiratory Exam: Clear to Auscultation Bilateral, NORMAL BREATHING PATTERN. absent: Accessory Muscle Use, Rales, Rhonchi, Wheezes, Respiratory Distress - Cardiovascular Exam Cardiovascular Exam: REGULAR RHYTHM, RRR, +S1, +S2. absent: Diastolic murmur, Gallop, Rubs, Systolic Murmur - GI/Abdominal Exam GI & Abdominal Exam: Normal Bowel Sounds, Tenderness (mild tenderness to deep palpation RLQ). absent: Guarding, Rebound Additional comments: No peritoneal signs, no rebound, no guarding - Extremities Exam Extremities exam: Positive for: full ROM, normal inspection. Negative for: pedal edema - Back Exam Back exam: NORMAL INSPECTION - Neurological Exam Neurological exam: Alert, Oriented x3 - Psychiatric Exam Psychiatric exam: Normal Affect, Normal Mood - Skin Skin Exam: Dry, Intact, Warm Discharge Plan - Follow Up Plan Condition: FAIR Disposition: HOME/ ROUTINE Instructions: Appendicitis, Adult (DC), How to Prevent Surgical Site Infections, Laceration Repair With Glue (DC), Appendectomy, Laparoscopic Surgery (DC), Appendectomy, Open Surgery (DC) Additional Instructions: Please follow up with Dr. Vela office within one week. It is ok to shower today. Please dab dry your dermabond port sites. No heavy lifting until follow up with Dr. Vela. Please contact your insurance for primary doctor options. Please then follow up with your doctor within 3-5 days. Should symptoms return, please visit nearest emergency department. Referrals: Kunal Vela MD [Staff Provider] - <Anita Bailey - Last Filed: 02/05/19 15:39> Provider - Provider Date of Admission: 02/04/19 00:56 Attending physician: Daya Sequeira MD Consults: 02/04/19 01:20 General Surgery Consult Stat Comment: Consulting Provider: Kunal Vela Consulting Physician: Kunal Vela Reason for Consult: appendicitis Hospital Course - Lab Results Lab Results: Micro Results 02/04/19 01:05 Blood Blood Culture - Preliminary NO GROWTH AFTER 24 HOURS 02/04/19 00:58 Blood Blood Culture - Preliminary NO GROWTH AFTER 24 HOURS Most Recent Lab Values WBC 12.6 10^3/uL (4.5-11.0) H 02/05/19 07:15 RBC 4.88 10^6/uL (3.5-6.1) 02/05/19 07:15 Hgb 13.9 g/dL (14.0-18.0) L 02/05/19 07:15 Hct 40.9 % (42.0-52.0) L 02/05/19 07:15 MCV 83.8 fl (80.0-105.0) 02/05/19 07:15 MCH 28.5 pg (25.0-35.0) 02/05/19 07:15 MCHC 34.0 g/dl (31.0-37.0) 02/05/19 07:15 RDW 12.7 % (11.5-14.5) 02/05/19 07:15 Plt Count 227 10^3/uL (120.0-450.0) 02/05/19 07:15 MPV 10.1 fl (7.0-11.0) 02/05/19 07:15 Neut % (Auto) 82.1 % (50.0-68.0) H 02/05/19 07:15 Lymph % (Auto) 10.5 % (22.0-35.0) L 02/05/19 07:15 [place] % (Auto) 7.2 % (1.0-6.0) H 02/05/19 07:15 Eos % (Auto) 0.1 % (1.5-5.0) L 02/05/19 07:15 Baso % (Auto) 0.1 % (0.0-3.0) 02/05/19 07:15 Lymph # (Auto) 1.3 (1.2-3.4) 02/05/19 07:15 [place] # (Auto) 0.9 (0.1-0.6) H 02/05/19 07:15 Eos # (Auto) 0.0 (0.0-0.7) 02/05/19 07:15 Baso # (Auto) 0.01 K/mm3 (0.0-2.0) 02/05/19 07:15 Absolute Neuts (auto) 10.36 (1.4-6.5) H 02/05/19 07:15 PT 13.1 SECONDS (9.4-12.5) H 02/04/19 01:05 INR 1.18 02/04/19 01:05 APTT 37.9 Seconds (26.9-38.3) 02/04/19 01:05 Sodium 141 mmol/L (132-148) 02/05/19 07:15 Potassium 4.0 mmol/L (3.6-5.0) 02/05/19 07:15 Chloride 105 mmol/L (98-107) 02/05/19 07:15 Carbon Dioxide 28 mmol/L (21-33) 02/05/19 07:15 Anion Gap 12 (10-20) 02/05/19 07:15 BUN 10 mg/dL (7-21) 02/05/19 07:15 Creatinine 0.7 mg/dl (0.8-1.5) L 02/05/19 07:15 Est GFR ( Amer) > 60 02/05/19 07:15 Est GFR (Non-Af Amer) > 60 02/05/19 07:15 Random Glucose 100 mg/dL (70-110) 02/05/19 07:15 Calcium 8.7 mg/dL (8.4-10.5) 02/05/19 07:15 Phosphorus 3.7 mg/dL (2.5-4.5) 02/04/19 07:10 Magnesium 2.1 mg/dL (1.7-2.2) 02/04/19 07:10 Total Bilirubin 0.7 mg/dL (0.2-1.3) 02/05/19 07:15 AST 38 U/L (17-59) 02/05/19 07:15 ALT 22 U/L (7-56) 02/05/19 07:15 Alkaline Phosphatase 50 U/L (38-126) 02/05/19 07:15 Total Protein 6.9 g/dL (5.8-8.3) 02/05/19 07:15 Albumin 3.6 g/dL (3.0-4.8) 02/05/19 07:15 Globulin 3.3 gm/dL 02/05/19 07:15 Albumin/Globulin Ratio 1.1 (1.1-1.8) 02/05/19 07:15 Lipase 45 U/L (23-300) 02/03/19 23:04 Urine Color Yellow (YELLOW) 02/03/19 23:11 Urine Appearance Clear (CLEAR) 02/03/19 23:11 Urine pH 8.0 (4.7-8.0) 02/03/19 23:11 Ur Specific [place] 1.015 (1.005-1.035) 02/03/19 23:11 Urine Protein Negative mg/dL (<30 mg/dL) 02/03/19 23:11 Urine Glucose (UA) Negative mg/dL (NEGATIVE) 02/03/19 23:11 Urine Ketones Negative mg/dL (NEGATIVE) 02/03/19 23:11 Urine Blood Negative (NEGATIVE) 02/03/19 23:11 Urine Nitrate Negative (NEGATIVE) 02/03/19 23:11 Urine Bilirubin Negative (NEGATIVE) 02/03/19 23:11 Urine Urobilinogen 0.2 E.U./dL (<1 E.U./dL) 02/03/19 23:11 Ur Leukocyte Esterase Negative Domenico/uL (NEGATIVE) 02/03/19 23:11 Blood Type B POSITIVE 02/04/19 07:10 Blood Type Confirm B POSITIVE 02/04/19 07:40 Antibody Screen Negative 02/04/19 07:10 BBK History Checked No verified bt 02/04/19 07:10 Attending/Attestation - Attestation I have personally seen and examined this patient.: Yes I have fully participated in the care of the patient.: Yes I have reviewed all pertinent clinical information, including history, physical exam and plan: Yes Notes (Text): Please note this DC summary is for 02/05/19 Patient seen and examined by me with resident at approximately 10:55 AM and prior to discharge on 02/05/19. Case including discharge plan discussed with resident. Agree with above with following additions/corrections. Patient is a 33-year-old male with no significant past medical history presented to emergency room with worsening of left lower quadrant abdominal pain. Please see H&P for full details. Patient was found to acute appendicitis. CT abdomen and pelvis per radiologist showed findings consistent with acute appendicitis, mild constipation, hepatomegaly, splenomegaly. Patient was seen by surgical team and was taken to the operating room for laproscopic appendectomy. Patient was afebrile. Patient had a white count of 14 on admission. WBC was 12.6 on discharge. Patient was initially placed on Rocephin and Flagyl. Per surgical team, these antibiotics were stopped. Patient was able to tolerate diet postop. Patient was having flatus and had a bowel movement. Patient was ambulating without difficulty. Patient was able to tolerate pain with pain medications. Patient was cleared for discharge by surgical team. Patient was discharged home. On day of discharge, patient stated he was feeling much better. Patient was passing flatus and had a bowel movement. Tolerating diet. Pain well controlled off pain medications. No nausea or vomiting. Patient denied chest pain or palpitations. No shortness of breath. No headaches or dizziness. No pain in her legs or knees. No fevers or chills. No dysuria. Physical exam: General: Awake and alert lying in bed in no acute distress HEENT: Normocephalic, atraumatic. Extraocular muscles intact, pupils equal and reactive, no scleral icterus. Oropharynx is pink moist. Neck is supple. Cardiovascular: Regular rhythm. Normal S1 and S2. No murmurs, rubs, or gallops appreciated Pulmonary: Normal respiratory effort. Scattered rhonchi. No rales or wheezing appreciated Gastrointestinal: Soft, nondistended. Mild tenderness around incision sites. Incision sites clean, dry, and intact. Positive bowel sounds all 4 quadrants. No guarding. Musculoskeletal: Moves all extremities. No calf tenderness. No edema appreciated. Central nervous system: AAOx3, CN 2-12 grossly intact. Dermatologic: Skin warm and dry. Please see chart for full details. Follow up instructions: Patient to follow up with surgeon within one week. Paitent to avoid any heavy lifting until cleared by surgeon. Patient may shower per surgical team. All instructions explained to the patient in detail. Patient both understands and agrees to all instructions. Written instructions also given. Time spent in discharging the patient including chart review, medication reconciliation, discussion with the patient, medical or surgical instrument maker, consultants, and nursing staff was approximately 35 minutes.
--- NOTE | 2019-02-09 08:24 | OP ---
PROCEDURE DATE: 02/04/2019 PREOPERATIVE DIAGNOSIS: Acute appendicitis. POSTOPERATIVE DIAGNOSIS: Acute appendicitis, simple, no perforation, no abscess. PROCEDURE: Laparoscopic appendectomy. SURGEON: Kunal Vela MD ASSISTANTS: Venancio Tuttle DO, PGY 3 and Janet Green DO PGY 1 ANESTHETIC USED: General anesthetic. MANAGER FINANCIAL SERVICES: Perfecto Coburn MD SUMMARY AND SIGNIFICANT EVENTS AND FINDINGS: Includes a nonperforated appendix and no intraabdominal abscesses, no intraoperative complications. Specimen to Pathology was appendix and no drains were placed. The patient was returned to PACU in a fair condition. CLINICAL NOTE: Mr. Jarred Lewis is a 33-year-old man who was evaluated in the ER at [facility]. He presented with epigastric and left lower quadrant pain for one day associated with nausea and vomiting. No fevers. PHYSICAL EXAMINATION: GENERAL: The patient was alert, in no acute distress. He was well appearing. HEART: Regular rate and rhythm. LUNGS: Clear to auscultation bilaterally. ABDOMEN: Soft, tender in the left lower quadrant and epigastrium. He had no rebound. He had mild guarding in the left lower quadrant. The patient did not have any other abdominal pathology. No peritoneal signs. EXTREMITIES: Full range of motion. Normal inspection. No pedal edema. CENTRAL NERVOUS SYSTEM: The patient was alert, oriented x3, able to answer questions and carry on conversation with normal affect and normal mood. SKIN: Warm, dry and intact with no rashes seen. He had a white blood cell count of 14. RADIOLOGIC STUDY: CT scan showed acute appendicitis, nonperforated, no abscesses seen. Surgery was indicated and recommended to the patient. The risks, benefits and alternative and rationale of surgery were explained including the risk of not operating. Informed consent was obtained for laparoscopic and possible open appendectomy which we performed. DESCRIPTION OF PROCEDURE: The patient was brought to the operating room where a surgical safety check was performed. Preoperatively, the patient received 500 mg of Flagyl. He was also given Rocephin in the ER. General anesthesia was induced. A Morrow catheter was inserted as the patient was not able to void immediately prior to the operation. Arms were not tucked. In supine position, the abdomen was prepped and draped in sterile fashion. An infraumbilical midline incision was made and carried down to the fascia which was divided exposing the peritoneal cavity. A closed technique was used to enter the peritoneal cavity with a Veress needle and used to establish a pneumoperitoneum. The laparoscope was inserted into the abdomen under direct vision. Subsequently following the ports were inserted under visualization along with local anesthetic in the typical fashion. The infraumbilical port was a 5 mm port. Th left lower quadrant port was 12 m port and the suprapubic port was a 5 mm port. Additional trocars were not placed. The patient was placed in a Trendelenburg position with the left side down. The peritoneal cavity was inspected. The right lower quadrant had a acute simple appendicitis with peritoneal adhesions of the appendix to the peritoneal wall. There was no intraabdominal abscess. No purulent free fluid. We began our dissection by following the tenia of the colon to the base of the appendix. Position of the appendix was somewhat retrocecal. The appendix was, however, easily identified. The peritoneum of the inflamed mesoappendix was divided using electrocautery. The appendiceal artery was identified. The artery was small and therefore divided with cautery. The appendix was freed and the tip was identified. The position of the appendix was retrocecal somewhat. The remainder of the mesoappendix was not dissected. The base of the cecum was healthy. An endoscopic linear cutting stapler was then used to divide and staple the base of the appendix. It was reloaded with vascular cartilage and the mesoappendix was similarly divided. The base of the cecum was inspected and found to be intact. The appendix was placed in sterile endoscopic bag. There was no purulent fluid in the abdomen. Irrigation of the right lower quadrant and pelvis was performed and suctioned. The appendix was removed from the abdomen and sent to Pathology with the endoscopic bag through the 12 mm port. Good hemostasis was achieved and all ports were removed under direct vision. Prior to removal of the ports, the staple line was inspected. Hemostasis was achieved. All areas of dissection were inspected and hemostasis was achieved. Ports were removed under direct vision. The fascia and the supraumbilical port was not reapproximated as this was a 5 mm port. The fascia at the left lower quadrant 12 mm port was reapproximated in a [id number] fashion using the previously placed 0 Vicryl sutures. The other ports did not require fascial closure. All remaining incisions were closed using a 3-0 Monocryl suture in an interrupted subcuticular fashion. The operative field was cleaned and dried. Dermabond glue was placed over all incisions. Dressings were applied. There were no intraoperative complications and estimated blood loss was 10 mL. All instrument and sponge counts were correct. A surgical debriding was performed. The patient was extubated and transferred to the PACU in stable condition. Janet Turcios D.O. Kunal Vela MD
== END 2019-02-05 13:45 | disposition home or self-care (01) ==
LOC: ED 22:02 → INTOOBSV 02-04 00:56 → ERH 02-04 00:56 → 5RSO 02-04 02:52
PROVIDERS: ADMIT Internal Medicine; ATTEND Internal Medicine
DX: K35.80 Unspecified acute appendicitis (principal); K59.00 Constipation, unspecified; R16.2 Hepatomegaly with splenomegaly, not elsewhere classified; Z91.013 Allergy to seafood
CPT/HCPCS: 36415; 44970; 71045; 74177; 80053; 81003; 83690; 83735; 84100; 85025; 85610; 85730; 86850; 86900; 87040; 88304; 93005; 96365; 96367; 96375; 96376; 99284; G0378; J0330; J0696; J1100; J1885; J2001; J2250; J2270; J2405; J2704; J2710; J2765; J3010; J7030; J7120; Q9967